=== PATIENT | female | born 1930 | race Caucasian/White ===

== ENCOUNTER 2019-01-26 16:54 | Inpatient (IN) ==
[2019-01-26] MEDS ORDERED: ZOFRAN IV PRN (17:13)
[2019-01-26] MEDS ORDERED: LEVAQUIN 500 MG/D5W 500 MG/100 ML IVPB IV SCH (17:15)
[2019-01-26] MEDS ORDERED: FLAGYL 500 MG/NS 500 MG/100 ML IVPB IV SCH (17:15)
[2019-01-26] MEDS ORDERED: SALINE LOCK IV FLUID XX ONE (17:36)
--- NOTE | 2019-01-26 19:20 | Diag Imaging Result Doc PS360 ---
EXAM: CT ABD/PELVIS W/IV CONT ONLY - 01/26/2019 HISTORY: Abdominal pain TECHNIQUE: CT abdomen/pelvis with intravenous contrast. No oral contrast administered per request of the referring provider. COMPARISON: None. FINDINGS: The visualized lung bases appear clear except for mild dependent atelectasis. There is a 1.2 cm well demarcated fluid density lesion in the right lobe of liver which likely represents cysts, although early abscess cannot be entirely excluded. There is no other liver lesion identified. There is mild splenomegaly. There is no focal splenic lesion identified. There are no substantial abnormalities of the adrenal glands or pancreas identified. There are no calcified gallstones or pericholecystic inflammation identified. The bilateral kidneys enhance homogeneously. There is no hydronephrosis. The distal aorta is mildly ectatic at 1.9 cm. There are atherosclerotic calcifications noted. There are lumbar spine degenerative changes noted. There is colonic diverticulosis which is most extensive along the descending and sigmoid colon. There is substantial wall thickening along the distal sigmoid colon. There is a 4.9 x 2.8 cm lobulated collection of fluid and gas at the upper pelvis at the right of midline which is compatible with abscess. This presumably arises from perforated sigmoid diverticulum. There is hazy inflammation of mesentery around the abscess. There are several small bowel loops which traverse this area. There is mild distention of a small bowel loop anterior to the abscess. There is retained fluid elsewhere in small bowel which may relate to secondary enteritis and/or ileus. There is no free peritoneal air identified remote from abscess. IMPRESSION: Colonic diverticulosis. Substantial wall thickening along distal sigmoid colon which presumably relate to diverticulitis. 4.9 x 2.8 cm abscess at upper pelvis at the right of midline which presumably relates to perforated sigmoid diverticulum. Ill-defined inflammation mesentery around the abscess, with multiple small bowel loops traversing this area. Mild distention of small bowel anterior to the abscess. Retained fluid and small bowel, possibly related to secondary enteritis. This report was discussed with Dr. Redding on 01/26/2019 at 7:17 PM and was readback. This exam was performed using automated exposure control, adjustment of mA or kV according to patient size, and/or use of iterative reconstruction technique. Electronically signed by Erik Talbot 01/26/2019 7:17 PM
[2019-01-26] MEDS: NS 1,000 ML IV SCH (19:32)
[2019-01-26] MEDS ORDERED: SODIUM CHLORIDE 0.9% INJ SCH (21:00)
[2019-01-26] MEDS ORDERED: NEXIUM IV SCH (21:00)
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
[2019-01-26] MEDS: ZOSYN 3.375 GM in NS 50 ML IV SCH (23:00)
[2019-01-27] MEDS: ZOSYN 3.375 GM in NS 50 ML IV SCH ×4 (02:02→20:53)
[2019-01-27] MEDS: PROTONIX IV SCH ×2 (02:02→20:53)
--- NOTE | 2019-01-27 03:32 | GENERAL SURGERY CONSULTATION ---
DATE: 01/26/2019 REASON FOR CONSULTATION: Intra-abdominal abscess. REQUESTING PHYSICIAN: Dr. Redding. HISTORY OF PRESENT ILLNESS: This is an 88-year-old female who was in good health until about 9 days ago, when she began experiencing fairly constant crampy lower abdominal pain. It has been associated with decreased energy, decreased appetite, emesis x2, and diarrhea x2. She denies exacerbating factors. It has been relieved somewhat with Advil at times. Currently, she is not in any significant pain. She saw her primary care physician, Dr. Redding. Initial evaluation included a CBC, which did show leukocytosis. Her plain abdominal x-ray was negative. He sent her for CT scan, which showed an abscess in the pelvis adjacent to the sigmoidal-rectal junction. There was mild distention of small bowel anterior to the abscess. There was no free air or significant free fluid. She was then directly admitted by Dr. Redding and I was consulted. PAST MEDICAL HISTORY: None. HOME MEDICATIONS: None. PAST SURGICAL HISTORY: Tonsillectomy. ALLERGIES: No known drug allergies. FAMILY HISTORY: Reviewed and noncontributory. SOCIAL HISTORY: She quit smoking years ago after smoking for 60 years. She does drink alcohol occasionally. She does walk quite a bit every day and is very active. REVIEW OF SYSTEMS: Ten-systems reviewed and negative except as noted above. PHYSICAL EXAMINATION: Vital Signs: Temperature 98.1 degrees, pulse 94, blood pressure 126/59, respiratory rate 18, O2 saturation 94%. General: An elderly female who looks her stated age, in no acute distress. HEENT: Normocephalic, atraumatic. Extraocular muscles intact. Pupils equal, round, reactive to light. Sclerae anicteric. Moist mucous membranes. Hearing grossly normal. No oral lesions. Neck: Supple. No thyromegaly. Cardiovascular: Regular rate and rhythm. Respiratory: Bilateral equal breath sounds. No increased work of breathing. Gastrointestinal: Soft, nondistended. No organomegaly or mass. She is mildly tender in the lower abdomen without rebound or guarding. Extremities: No clubbing, cyanosis, or edema. Skin: Warm and dry. No rash. Musculoskeletal: Moves all extremities equally and well. LABORATORY: They are currently not available for me to see, but Dr. Redding reported to me leukocytosis of 19,000. IMAGING: As described above in HPI. ASSESSMENT AND PLAN: An 88-year-old female with probable peridiverticular abscess. She is hemodynamically stable. Her abdominal exam is fairly benign. Ideally, we would percutaneously drain this abscess, but anatomically I do not think this is safe. We will start off conservatively with broad-spectrum antibiotics, namely Zosyn and Flagyl. I will reassess her physical exam in the morning as well as her lab work and x-ray. If she has any significant clinical deterioration, then we will proceed to the operating room for drainage of the abscess and possible bowel resection. However, I think she may improve with nonoperative measures. I would plan a repeat CT scan in about 4 days, if she is clinically improving to check for resolution of the abscess. cc: MD Ricardo Ames MD
[2019-01-27 07:13] LABS: BASO# 0.02 X1000 (0.0-0.2); BASO% 0.1 % (0.0-0.8); EOS% 1.3 % (0.0-10.0); HEMATOCRIT 35.5 % (37.0-47.0); HEMOGLOBIN 11.2 g/dL (12.0-16.0); IMM GRAN# 0.09 X1000 (0.0-0.04); IMM GRAN% 0.6 % (0.0-0.5); LYMPH# 1.31 X1000 (1.2-3.4); LYMPH% 8.5 % (20.5-51.1); MCH 28.8 PG (27-31); MCHC 31.5 g/dL (33-37); MCV 91.3 FL (81-99); MONO# 1.03 X1000 (0.11-0.59); MONO% 6.7 % (1.7-9.3); MPV 9.5 FL (7.4-10.4); NEUT# 12.73 X1000 (1.4-6.5); NEUT% 82.8 % (42.2-75.2); PLT 357 X1000 (130-400); RBC 3.89 XMIL (4.2-5.4); RDW 13.8 % (11.5-14.5); WBC 15.38 X1000 (4.8-10.8)
[2019-01-27 07:46] LABS: CALCIUM 8.8 mg/dL (8.8-10.2); POTASSIUM 4.1 mmol/L (3.5-5.1)
--- NOTE | 2019-01-27 08:20 | Diag Imaging Result Doc PS360 ---
EXAM: FLAT/UPRIGHT ABD/1 VIEW CHEST HISTORY: diverticulitis/abscess TECHNIQUE: Three views COMPARISON: None. FINDINGS: The lungs are well expanded. No pneumonia. No cardiomegaly. No free air beneath the diaphragm. Air distended loop of bowel in the left abdomen measuring 3.7 cm.. No organomegaly. There is intravenous contrast in the urinary bladder. There appears to be a urinary bladder diverticulum. IMPRESSION: Air distended small bowel loop in the mid left abdomen. Follow-up films recommended."),3) Electronically signed by Osman Paul 01/27/2019 8:17 AM
[2019-01-27] MEDS: NS 1,000 ML IV SCH ×2 (08:32→20:58)
[2019-01-27] MEDS: SODIUM CHLORIDE 0.9% INJ SCH ×2 (08:35→20:53)
--- NOTE | 2019-01-27 15:22 | GENERAL SURGERY PROGRESS NOTE ---
DATE: 01/27/2019 SUBJECTIVE: The patient denies any worsening symptoms of abdominal pain, nausea, vomiting, fever, or other systemic complaints. She has passed some gas. OBJECTIVE: Vital Signs: She is afebrile. Vital signs are stable. General: She is awake and alert, in no acute distress. CV: Regular rate and rhythm. Respiratory: Bilateral breath sounds. No increased work of breathing. Gastrointestinal: Soft, nondistended. Mildly tender in the lower abdomen. No rebound or guarding. She does have bowel sounds. LABORATORY: White blood cell count 15,000, hemoglobin 11. Electrolytes reviewed and notable for a moderately low carbon dioxide at 19. IMAGING: Abdominal flat and upright x-ray was reviewed and showed no free air and a moderately air-distended loop of bowel in the left abdomen, but otherwise there were no significant findings. ASSESSMENT AND PLAN: An 88-year-old female with pelvic abscess, likely of diverticular origin. She is stable. We are currently treating this non operatively with intravenous antibiotics. She seems to be stable if not improved. I will start her on a liquid diet and advance as tolerated. My plan is to repeat a computed tomography scan on Wednesday to check for resolution or at least improvement of the abscess. If she clinically deteriorates, she will require exploratory surgery. cc: MD Ricardo Ames MD
--- NOTE | 2019-01-27 19:04 | PROGRESS NOTE ---
DATE: 01/27/2019 SUBJECTIVE: Interval history was reviewed. Appreciated Dr. Boggs consult. The patient is slightly improved. OBJECTIVE: Blood pressure is stable. Slightly tachycardic. Afebrile. HEENT exam within normal limits. Neck is supple. Chest is clear. Heart sounds are regular. Belly is soft. No signs of peritonitis. LABORATORY DATA: White cell count 15.3, hematocrit 35, platelets 357,000. Sodium 138, potassium 4.1, BUN 18, creatinine 1.0. ASSESSMENT AND PLAN: 1. Sigmoid diverticulitis with abscess. Continue intravenous antibiotics, intravenous fluids. Dr. Boggs is following. Started on full liquid diet. Daily monitoring. CBC. 2. Gastrointestinal prophylaxis with Protonix, ambulation. Zofran for nausea. Continue to see the progress over the weekend and will follow with the recommendations from Dr. Boggs. I appreciated his consultation and expertise. Level of documentation 25 minutes. cc: Ricardo Redding MD
[2019-01-28] MEDS: ZOSYN 3.375 GM in NS 50 ML IV SCH ×4 (02:01→20:09)
[2019-01-28 08:04] LABS: BASO# 0.03 X1000 (0.0-0.2); BASO% 0.3 % (0.0-0.8); EOS# 0.38 X1000 (0.0-0.7); EOS% 3.3 % (0.0-10.0); HEMATOCRIT 38.3 % (37.0-47.0); HEMOGLOBIN 11.9 g/dL (12.0-16.0); IMM GRAN# 0.11 X1000 (0.0-0.04); LYMPH# 1.67 X1000 (1.2-3.4); LYMPH% 14.5 % (20.5-51.1); MCHC 31.1 g/dL (33-37); MCV 93.2 FL (81-99); MONO# 0.68 X1000 (0.11-0.59); MONO% 5.9 % (1.7-9.3); MPV 9.4 FL (7.4-10.4); NEUT# 8.62 X1000 (1.4-6.5); PLT 478 X1000 (130-400); RBC 4.11 XMIL (4.2-5.4); WBC 11.49 X1000 (4.8-10.8)
[2019-01-28] MEDS: NS 1,000 ML IV SCH ×2 (08:25→18:27)
--- NOTE | 2019-01-28 12:27 | PROGRESS NOTE ---
DATE: 01/28/2019 SUBJECTIVE: An 88-year-old white female patient, admitted with lower abdominal pain. The patient found to have leukocytosis. CT scan did reveal diverticulitis and possible abscess. The patient admitted for further care. Surgical opinion requested and reviewed. The patient started on IV antibiotics. Clinically, patient is doing better. Her pain seems to be getting better. She denied any fever or chills. She denied any diarrhea. No nausea or vomiting. No abdominal distention. No dysuria. No typical chest pain or palpitation. PAST MEDICAL HISTORY: 1. Metabolic syndrome. 2. Vancleve's disease. 3. Osteoporosis. 4. Vitamin D deficiency. OBJECTIVE: Vital signs: Blood pressure 112/54, pulse 78, respirations 16, temperature 97.4 degrees. Skin: Senile turgor. Neck: Supple. No JVD. Lungs: Bilateral good air entry present. CVS: S1 and S2 heard. Abdomen: Soft, globular. Bowel sounds present. Minimal tenderness left lower quadrant. No guarding or rigidity. Extremities: No cyanosis, clubbing. No acute DVT. 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 Able to move all 4 limbs. LABORATORY DATA: Done today includes WBC count 11.49, hemoglobin 11.9, hematocrit 38.3, platelet count 478. Electrolytes checked yesterday reviewed. IMAGING STUDIES: Admission CT scan result noted. CONSIDERATION: 1. Sigmoid diverticulitis. 2. The patient does have abscess. 3. Her other problems include metabolic syndrome. 4. Osteoporosis. 5. Vitamin D deficiency. 6. Leukocytosis, improved. 7. Anemia, most likely of chronic disease. Labs and medication noted. Surgical consult also reviewed. I will continue current treatment. Encourage oral feeding. If clinical condition permits, we will plan discharging patient home soon. cc: MD Ricardo Hoffman MD
--- NOTE | 2019-01-28 14:30 | GENERAL SURGERY PROGRESS NOTE ---
DATE: 01/28/2019 SUBJECTIVE: She denies any abdominal pain. She slept well last night. No fevers, no tachycardia overnight. Her white count downtrending down to 11. EXAM: She is alert.Cardiovascular: Normal rate. Abdomen: Soft, nontender, nondistended. Integument: Warm, dry. She is sitting on edge of bed. ASSESSMENT AND PLAN: This is a female with a abdominal abscess most likely diverticular in etiology. Is not amenable percutaneous drainage, is approximately 5 cm and she seems to be clinically improving with antibiotics. We will continue current antibiotics. I discussed with anticipation long-term antibiotics but will gradually begin advancing her diet. I have encouraged her to be out of bed and mobilizing. cc: MD Ricardo Gannon MD
[2019-01-28] MEDS: LOVENOX SUBQ SCH (14:54)
[2019-01-28] MEDS: PROTONIX IV SCH (20:09)
[2019-01-28] MEDS: SODIUM CHLORIDE 0.9% INJ SCH (20:09)
[2019-01-29] MEDS: ZOSYN 3.375 GM in NS 50 ML IV SCH ×4 (01:51→20:44)
[2019-01-29] MEDS: NS 1,000 ML IV SCH ×2 (04:33→13:50)
[2019-01-29] MEDS: LOVENOX SUBQ SCH (09:52)
--- NOTE | 2019-01-29 12:01 | GENERAL SURGERY PROGRESS NOTE ---
DATE: 01/29/2019 SUBJECTIVE: Doing well. No fevers. No tachycardia. OBJECTIVE: Vital Signs: Blood pressure 119/53. General: She is alert. She is sitting on the edge of the bed. Cardiovascular: Normal rate. Abdomen: Soft, nontender, nondistended. Integument: Warm and dry. LABORATORY DATA: Reviewed her labs. Nothing new today. ASSESSMENT AND PLAN: An 88-year-old female with pelvic abscess. This is improving with intravenous antibiotics. Will repeat her labs tomorrow. If white count remains normal, it would be reasonable to transition to intravenous antibiotics as an outpatient. Otherwise, I have encouraged her to go slow with her eating and ambulating. cc: MD Ricardo Gannon MD
--- NOTE | 2019-01-29 12:09 | PROGRESS NOTE ---
DATE: 01/29/2019 SUBJECTIVE: Ms. Blunt is doing fair. The patient did have some abdominal pain. She did have two bowel movements. No blood or mucus in the stool. No abdominal distention. Denied any dysuria or hematuria. No chest pain or palpitations. OBJECTIVE: Vital Signs: Noted. Neck: Supple. No JVD. Lungs: Bilateral good air entry present. Cardiovascular: S1 and S2 heard. Abdomen: Soft, nontender. Bowel sounds present. CERTIFICATION OFFICER: Alert, awake, able to move all 4 limbs. CONSIDERATION: 1. Acute sigmoid diverticulitis with possible localized abscess. 2. Leukocytosis, improving. 3. History of osteoporosis. Overall, the patient is doing better. Advised the patient to eat small, frequent meals, and light meals. Continue intravenous antibiotics. I am going to repeat blood work tomorrow. Dr. Redding will follow the patient. If clinical condition permits, we plan on discharging the patient home tomorrow. cc: MD Ricardo Hoffman MD
[2019-01-29] MEDS: PROTONIX IV SCH (20:45)
[2019-01-29] MEDS: SODIUM CHLORIDE 0.9% INJ SCH (20:45)
[2019-01-30] MEDS: ZOSYN 3.375 GM in NS 50 ML IV SCH ×4 (02:22→20:56)
[2019-01-30] MEDS: NS 1,000 ML IV SCH ×4 (02:27→20:56)
[2019-01-30 07:47] LABS: BASO# 0.03 X1000 (0.0-0.2); BASO% 0.4 % (0.0-0.8); EOS# 0.37 X1000 (0.0-0.7); EOS% 5.5 % (0.0-10.0); HEMATOCRIT 33.4 % (37.0-47.0); HEMOGLOBIN 10.3 g/dL (12.0-16.0); IMM GRAN# 0.09 X1000 (0.0-0.04); IMM GRAN% 1.3 % (0.0-0.5); LYMPH% 25.4 % (20.5-51.1); MCH 28.9 PG (27-31); MCHC 30.8 g/dL (33-37); MCV 93.6 FL (81-99); MONO# 0.52 X1000 (0.11-0.59); MONO% 7.8 % (1.7-9.3); MPV 9.6 FL (7.4-10.4); NEUT# 3.98 X1000 (1.4-6.5); NEUT% 59.6 % (42.2-75.2); PLT 306 X1000 (130-400); RBC 3.57 XMIL (4.2-5.4); WBC 6.69 X1000 (4.8-10.8)
[2019-01-30 08:14] LABS: ALB/GLOB RATIO 0.7; ALBUMIN 2.2 g/dL (3.5-5.0); CREATININE 0.9 mg/dL (0.5-0.9); MAGNESIUM 1.9 mg/dL (1.5-2.7); POTASSIUM 3.6 mmol/L (3.5-5.1); TOTAL BILIRUBIN 0.37 mg/dL (0.20-1.00); TOTAL PROTEIN 5.4 g/dL (6.3-8.3)
[2019-01-30] MEDS: LOVENOX SUBQ SCH (11:00)
--- NOTE | 2019-01-30 15:04 | GENERAL SURGERY PROGRESS NOTE ---
DATE: 01/30/2019 SUBJECTIVE: The patient is feeling fine. She denies abdominal pain, nausea, or vomiting. She has a little crampiness at times. She is eating a regular diet. She is having bowel movements and passing gas. No fever or chills. OBJECTIVE: Vital Signs: She is afebrile. Vital signs are stable. General: She is awake, alert, and oriented x3. No acute distress. GI: Soft, nontender, nondistended. Good bowel sounds. LABORATORY DATA: CBC and metabolic profile were reviewed and unremarkable. Her white blood cell count is noted to be normal now. ASSESSMENT AND PLAN: An 88-year-old female with abscess of the pelvis, presumed to be due to diverticulitis. She is clinically stable. She has been on antibiotics through the weekend. We will recheck a CT scan tomorrow to assess for improvement or resolution of the abscess. If that is the case, my plan is to transition her to Levaquin and Flagyl for the next 10 days, and discharge her home tomorrow. We will then have a discussion for possible elective low anterior resection and sigmoidectomy versus continued observation. cc: MD Ricardo Ames MD
[2019-01-30] MEDS: PROTONIX IV SCH (20:58)
[2019-01-30] MEDS: SODIUM CHLORIDE 0.9% INJ SCH (20:58)
[2019-01-31] MEDS: ZOSYN 3.375 GM in NS 50 ML IV SCH ×3 (03:00→14:42)
--- NOTE | 2019-01-31 05:54 | PROGRESS NOTE ---
DATE: 01/30/2019 SUBJECTIVE: Events noted over the weekend. The patient is slowly improving. REVIEW OF SYSTEMS: None reported. PHYSICAL EXAMINATION: Vital Signs: Temperature 98.6 degrees, pulse 79, and vitals are stable. HEENT: Within normal limits. Neck: Supple. No lymphadenopathy. Chest: Bilateral air entry. Heart: Sounds are regular. Abdomen: Belly is soft. No signs of peritonitis. INVESTIGATIONS: White cell count 6.6, hematocrit 33.4, and platelets 306,000. SMA 7 is normal. LFTs were normal. ASSESSMENT AND PLAN: 1. Diverticulitis with abscess. Clinically better with antibiotics with IV Zosyn. 2. Slowly advance the diet. 3. Deep vein thrombosis prophylaxis with Lovenox and GI prophylaxis with IV Protonix. 4. Discussed with the family and Dr. Boggs. He is going to repeat the CT in the morning. Decrease IV fluids 50 mL/h per hour. Based on that, we will recommend switching to oral antibiotics and will follow up. Plan of care discussed with the family. LEVEL OF DOCUMENTATION: 25 minutes. cc: Ricardo Redding MD
[2019-01-31] MEDS: LOVENOX SUBQ SCH (09:01)
--- NOTE | 2019-01-31 11:25 | Diag Imaging Result Doc PS360 ---
EXAM: CT ABDOMEN/PELVIS W/WO CONTRAS INDICATION: pelvic abscess follow up TECHNIQUE: This exam was performed using automated exposure control, adjustment of mA or kV according to patient size, and/or use of iterative reconstruction technique. COMPARISON: 01/26/2019 FINDINGS: There has been interval development of small bilateral pleural effusions and bibasilar atelectasis. There has been interval development of moderate body wall anasarca. There is now trace ascites tracking around the liver. There has been development of mild periportal edema. There is a stable cystic-appearing focus associated with the right hepatic lobe. The liver is essentially unremarkable, otherwise. There is a stable borderline to mildly prominent spleen. The pancreas, adrenal glands, kidneys, and urinary bladder are unchanged. The known pelvic abscess seen on the previous study at and to the right of midline is overall slightly smaller measuring 5.1 x 2.2 cm axially (4.9 x 2.8 cm previously). It has a thickened and enhancing border and there are gas droplets within the abscess. There is extensive diverticulosis in the abscess is likely from a ruptured diverticulum. There is a thickened adjacent segment of sigmoid colon similar to the previous study. The adjacent loops of bowel exhibit mild thickening indicating secondary enteritis. No new abscess is appreciated. IMPRESSION: 1.Slight decrease in size of the known pelvic abscess as described above. 2.Development of small bilateral pleural effusions, trace ascites, and body wall anasarca. Electronically signed by Robert Richardson 01/31/2019 11:23 AM
[2019-01-31] MEDS ORDERED: LASIX IV ONE (14:11)
--- NOTE | 2019-01-31 15:27 | GENERAL SURGERY PROGRESS NOTE ---
DATE: 01/31/2019 SUBJECTIVE: The patient feels fine. She denies abdominal pain, nausea, vomiting, or fever. She is eating and having bowel function. OBJECTIVE: She is afebrile. Vital signs are stable.General: She is awake, alert, oriented x3. No acute distress. Gastrointestinal: Soft, nontender, nondistended. IMAGING: Her abdominal pelvis CT scan today shows a slight decrease in size of her pelvic abscess. She does have some small bilateral pleural effusions, trace ascites and body wall anasarca. There is extensive diverticulosis in the sigmoid colon near the abscess. ASSESSMENT AND PLAN: An 88-year-old female with pelvic abscess, likely due to ruptured diverticulitis. She is clinically stable. The abscess is somewhat smaller and we are planning discharge home for a 14 day course of Levaquin and Flagyl. She will follow up with me in 2 weeks. I will repeat a CT scan at that time to assess for resolution of the abscess. We did discuss possible elective sigmoid resection. She will need a colonoscopy in the future whether we do resection or not. cc: MD Ricardo Ames MD
[2019-01-31] MEDS: NS 1,000 ML IV SCH (16:42)
[2019-01-31 17:02] VITALS: BP 105/80
--- NOTE | 2019-01-31 22:36 | DISCHARGE SUMMARY ---
ADMISSION DATE: 01/26/2019 DISCHARGE DATE: 01/31/2019 DISCHARGING DIAGNOSIS: Lower abdominal pain due to sigmoid diverticulitis with small perforation with midline 4 cm abscess. SECONDARY DIAGNOSES: 1. Edema due to volume overload 2. Metabolic syndrome. 3. Norfolk's disease. 4. Osteoporosis. 5. Vitamin D deficiency. CONSULTS: Dr. Boggs. BRIEF HISTORY: Please see the H and P that was done on 01/26/2019. In brief, she is an 88-year- old white female admitted to the hospital with lower abdominal pain for the last 9 days, associated with elevated white cell count of 19,000. CT scan of the abdomen and pelvis showed perforation diverticulum with midline abdominal abscess. Surgical consult was obtained, and as per Dr. Boggs, it is hard to do the drainage of the abscess due to part of the bowel. The patient was relegated to medical management with Zosyn and Flagyl. Follow-up white cell count came back normal. Patient developed small edema due to volume overload for which Lasix was given. Followup CT findings reassuring, slight decrease in abscess, and Dr. Boggs wants to continue 10 to 14 days of Levaquin and Flagyl, and follow up as an outpatient. At the time of discharge patient is stable. LABS: CBC: White cell count 6.6, hematocrit 33.4, platelets 306,000. Sodium 143, potassium 3.6, BUN 7, creatinine 0.9. Glucose 88. LFTs, alkaline phosphatase coming down at 180. Repeat CT scan of the abdomen and pelvis, abscess is slightly smaller. Development of some ascites and body wall anasarca. DISCHARGE INSTRUCTIONS: 1. Flagyl 500 t.i.d., Levaquin 750 daily. 2. Follow up in my office next week as well as with Dr. Humza Boggs. cc: MD Humza Jean MD
== END 2019-01-31 19:30 | disposition home or self-care (01) | DRG 392 ==
LOC: DIRADM 16:54 → EDIPHOLD 17:14 → 3N 23:08
PROVIDERS: ADMIT Internal Medicine; ATTEND Internal Medicine

== ENCOUNTER 2019-02-14 05:16 | Inpatient (IN) ==
--- NOTE | 2019-02-13 13:04 | EKG Report ---
Test Performed on : 02/13/2019 12:25:18 PM Test Reason : PAT Blood Pressure : / mmHG Vent. Rate : 079 BPM Atrial Rate : 079 BPM P-R Int : 156 ms QRS Dur : 086 ms QT Int : 366 ms P-R-T Axes : 046 031 040 degrees QTc Int : 419 ms Normal sinus rhythm. Normal ECG No previous ECGs available Confirmed by Zion Pederson MD ([id number]) on 02/14/2019 7:18:21 AM
[2019-02-14] MEDS ORDERED: INVANZ 1 GM/NS 1 GM/50 ML IVPB ONE (05:42)
[2019-02-14] MEDS ORDERED: ENTEREG ONE (05:42)
[2019-02-14] MEDS ORDERED: LR 1,000 ML ONE (05:42)
[2019-02-14] MEDS ORDERED: DIPRIVAN 1% ONE (06:19)
[2019-02-14] MEDS ORDERED: FENTANYL ONE (06:19)
[2019-02-14] MEDS ORDERED: NORCURON ONE (06:20)
[2019-02-14] MEDS ORDERED: ROBINUL ONE ×2 (06:20→08:50)
[2019-02-14] MEDS ORDERED: STERILE WATER INJ. ONE (06:20)
[2019-02-14] MEDS ORDERED: XYLOCAINE-MPF 2% ONE (06:20)
[2019-02-14] MEDS ORDERED: NEO-SYNEPHRINE ONE (06:24)
[2019-02-14] MEDS ORDERED: QUELICIN (DOSE) ONE (06:33)
[2019-02-14] MEDS ORDERED: SENSORCAINE 0.5%-EPI 1:200,000 ONE (06:37)
[2019-02-14] MEDS ORDERED: ALBUMIN 25% ONE (06:37)
[2019-02-14] MEDS ORDERED: BRIDION ONE (06:37)
[2019-02-14] MEDS ORDERED: OFIRMEV 1000 MG/ISOTONIC SOLN 1,000 MG/100 ML BOTTLE ONE (07:01)
[2019-02-14] MEDS ORDERED: DECADRON ONE (07:01)
[2019-02-14] MEDS ORDERED: EPHEDRINE ONE (07:26)
[2019-02-14] MEDS ORDERED: PRECEDEX ONE (07:49)
[2019-02-14] MEDS ORDERED: DILAUDID ONE (07:54)
[2019-02-14] MEDS ORDERED: NEOSTIGMINE ONE (08:50)
[2019-02-14] MEDS ORDERED: ZOFRAN ONE (08:50)
[2019-02-14] MEDS ORDERED: EXPAREL 1.3% ONE (09:00)
[2019-02-14] MEDS ORDERED: MARCAINE 0.25% ONE (09:01)
[2019-02-14 10:23] LABS: URINE SOURCE CATH
[2019-02-14 10:27] LABS: BILIRUBIN URINE NEGATIVE (NEGATIVE); BLOOD URINE NEGATIVE (NEGATIVE); COLOR YELLOW; GLUCOSE URINE NEGATIVE (NEGATIVE); KETONE URINE NEGATIVE (NEGATIVE); LEUKOCYTES URINE NEGATIVE (NEGATIVE); NITRITE URINE NEGATIVE (NEGATIVE); PROTEIN URINE NEGATIVE (NEGATIVE); SP GRAVITY URINE 1.006; TURBIDITY URINE CLEAR (CLEAR); UR EPITHELIAL CELLS <10 /HPF (<10); URINE BACTERIA NEGATIVE /HPF; URINE WBC <10 /HPF (<10); UROBILINOGEN URINE NORMAL (NORMAL)
[2019-02-14] MEDS ORDERED: NS 1,000 ML ONE (11:33)
[2019-02-14] MEDS ORDERED: ZOFRAN IV PRN (11:46)
[2019-02-14] MEDS ORDERED: DILAUDID IV PRN (11:46)
--- NOTE | 2019-02-14 12:07 | OPERATIVE NOTE ---
PROCEDURE DATE: 02/14/2019 PREOPERATIVE DIAGNOSIS: Diverticulitis with abscess. POSTOPERATIVE DIAGNOSIS: Diverticulitis with abscess. PROCEDURE: Robotic converted to open low anterior colon resection, drainage of intraabdominal abscess, robotic appendectomy, and partial right salpingectomy. SURGEON: Humza Boggs MD. FINANCIAL PLANNING ASSISTANT: Dong Gutierrez MD. ANESTHESIA: General. ESTIMATED BLOOD LOSS: 300 mL. COMPLICATIONS: None apparent. SPECIMENS: Sigmoid colon, portion of rectum, portion of left fallopian tube, and appendix. FINDINGS: The patient had diverticulitis of the distal sigmoid and rectal junction, with severe inflammation and adhesions of the sigmoid and rectum to the uterus, bladder and left fallopian tube. There was a contained abscess in this area. After the resection and anastomosis a proctoscopy was performed by Dr. Gutierrez and there was no evidence of leakage at the anastomosis. TECHNIQUE: She was brought to the operating room and placed supine on the table. General anesthesia was induced. A Sanabria catheter was placed. She was placed in stirrups, appropriately padded. She was then prepped and draped in the usual sterile fashion. The, 0.25% Marcaine with epinephrine was used to anesthetize our incisions. An 11 mm incision was made just superior and to the right of the umbilicus. The anterior fascia was exposed and incised with cautery. Entry into the peritoneal cavity was obtained under direct vision with the Optiview device. Pneumoperitoneum was established. The camera was inserted. There was no evidence of injury to underlying structures. Two 8 mm incision ports were placed in the left upper abdomen and lateral abdomen under direct vision. A 15 mm incision port was placed in the right lower quadrant under direct vision, and a 5 mm logistics assistant port was placed in the right upper quadrant under direct vision. She was placed in Trendelenburg in slight right rotation. The robot was brought in and docked to the ports. The instruments were inserted. I then went to the console. There were numerous adhesions of the small-bowel down to the inflamed sigmoid, also to the uterus and right fallopian tube. I took these adhesions either with blunt sweeping or with scissors and cautery. I eventually was able to free up all the small-bowel away from the inflamed area. I did enter an abscess cavity in between the sigmoid colon, uterus and fallopian tube. We suctioned this out. I continued working to free up the sigmoid from the structures, but ultimately felt like I could not get adequate mobilization robotically without increasing the risk of injuring either the distal rectum or the bladder or ureter. I did, at this point, decide to open. I rejoined the sterile field, the robot was undocked and removed. I made a midline incision from the umbilicus down to the symphysis pubis with a knife and carried this down through subcutaneous fat, fascia and peritoneum with cautery. A wound protector was placed and a Chaparro retractor. I began mobilizing the sigmoid colon away from the lateral pelvic sidewall and pericolic gutter incising the white line of Toldt with cautery and using blunt finger dissection to mobilize the sigmoid and descending colon away from the retroperitoneum. I did identify the left ureter and stayed away from it during the dissection. Using finger fracture technique I was able to mobilize the sigmoid loop that was stuck in the pelvis up and out of the pelvis. Then I could visualize the rectum where it appeared to be normal in the midportion of the rectum. I went ahead and transected the sigmoid colon near the descending/sigmoid junction with a blue linear CHARO stapler. I created a window around the normal-appearing mid rectum with cautery and blunt finger dissection and transected it with a 45 mm blue TA stapler. I then divided the intervening sigmoid and rectum mesentery with the LigaSure device and passed the specimen off the field. I then opened up the staple line of the descending colon with cautery and sized it up to a 31 size. A 31 anvil in the EEA stapler was then placed along with a pursestring device, it did reach down to our rectal stump without significant tension. I then went below and dilated up the rectum with the dilators. I did have trouble passing the dilators all the way to the end of the staple line as there was probably a narrowed area just distal to our rectal stump staple line. I rejoined the sterile field and mobilized the rectal stump laterally with cautery. Dr. Gutierrez came in at this point and assisted with the anastomosis and proctoscopy. We decided to go ahead and bring up the stapler and bring it out along the anterior aspect of the rectum just distal to the stapled end of the rectal stump, so he brought up the stapler and deployed the male end through the rectal wall. I mated it up with the female end on the descending colon, and he went ahead and approximated the anvil with a stapler and fired it and brought it out. There were 2 intact donuts. The staple line was then placed under some saline. He performed a proctoscopy and passed air across the staple line. There was no evidence of any leakage. He desufflated the rectum and I then suctioned out and irrigated out the pelvis thoroughly with warm saline. We removed all laparotomy pads and instruments. I changed gloves. All the ports have been removed. I ran the small-bowel from the terminal ileum to the ligament of Treitz. There was no evidence of any bowel injury. I also should point out that prior to opening, I did have to peel the appendix off of the abscess cavity. It was significantly inflamed at its tip. I do not believe this represented primary appendicitis but the appendix appeared to be significantly diseased because of its association with the abscess so I went ahead and performed an appendectomy transecting across the base of the appendix and the appendiceal mesentery with a robotic staple load, and once we opened I removed the appendix. I also had partially removed some of the fallopian tube with scissors and cautery during my dissection around the abscess cavity. This was also removed once we opened. I closed the peritoneum of the lower midline incision with a running #1 Vicryl. The fascia was closed with a running #1 Maxon. I closed the camera port site fascia and the right lower quadrant port site fascia with interrupted 0 Vicryl. I then closed the skin with skin clips. She was awakened in stable condition. A sterile dressing was applied. She was transferred to the recovery room without apparent complication. cc: Humza Boggs MD
[2019-02-14] MEDS: NORCO-10 PO PRN ×2 (13:51→19:45)
[2019-02-14] MEDS: NS 1,000 ML IV SCH (13:51)
[2019-02-14] MEDS: LOVENOX SUBQ SCH (20:53)
[2019-02-14] MEDS: PERIDEX MT SCH (20:53)
[2019-02-15] MEDS: NORCO-10 PO PRN ×4 (01:13→20:24)
[2019-02-15] MEDS: NS 1,000 ML IV SCH (04:32)
[2019-02-15] MEDS: INVANZ 1 GM/NS 1 GM/50 ML IVPB IV SCH (06:07)
[2019-02-15 06:45] LABS: HEMATOCRIT 37.1 % (37.0-47.0); HEMOGLOBIN 11.7 g/dL (12.0-16.0); MCHC 31.5 g/dL (33-37); MCV 91.8 FL (81-99); MPV 9.2 FL (7.4-10.4); RBC 4.04 XMIL (4.2-5.4); RDW 14.9 % (11.5-14.5); WBC 11.16 X1000 (4.8-10.8)
[2019-02-15 07:08] LABS: AGAP 13; BUN 7 mg/dL (8-22); CALCIUM 8.3 mg/dL (8.8-10.2); CHLORIDE 107 mmol/L (98-107); COSMO 282; CREATININE 0.8 mg/dL (0.5-0.9); ESTIMATED GFR > 60; GLUCOSE 120 mg/dL (70-104); POTASSIUM 4.3 mmol/L (3.5-5.1); SODIUM 142 mmol/L (136-145); TCO2 22 mmol/L (25-35)
[2019-02-15] MEDS: ENTEREG PO SCH ×2 (08:37→20:22)
[2019-02-15] MEDS: PERIDEX MT SCH ×2 (08:37→20:22)
--- NOTE | 2019-02-15 08:57 | GENERAL SURGERY PROGRESS NOTE ---
DATE: 02/15/2019 SUBJECTIVE: The patient reports some worsened lower abdominal pain this morning, but it is relieved with the medicine. OBJECTIVE: Vital Signs: She is afebrile, pulse 95 to 101 overnight, blood pressure 135/68, O2 saturation 95%. General: She is awake, alert, and oriented x3. No acute distress. CV: Regular rate and rhythm. Respiratory: Bilateral breath sounds. No increased work of breathing. Gastrointestinal: Soft, nondistended, appropriately tender. She does have good bowel sounds. Incisional dressings are clean and dry. LABORATORY DATA: White blood cell count 11,000, hemoglobin 11.7, hematocrit 37. Electrolytes reviewed and unremarkable. ASSESSMENT AND PLAN: An 88-year-old female, postoperative day 1, open low anterior colon resection with appendectomy for diverticulitis, also drainage of intraabdominal abscess. She will remain on Invanz and a full liquid diet. We will consult Physical Therapy to help her mobilize today. cc: Humza Boggs MD
[2019-02-15] MEDS: LOVENOX SUBQ SCH (20:25)
[2019-02-16] MEDS: INVANZ 1 GM/NS 1 GM/50 ML IVPB IV SCH (08:29)
[2019-02-16] MEDS: PERIDEX MT SCH ×2 (08:30→20:35)
[2019-02-16] MEDS: ENTEREG PO SCH ×2 (08:30→20:34)
[2019-02-16] MEDS: NORCO-10 PO PRN (10:05)
[2019-02-16] MEDS ORDERED: NS 500 ML IV ONE (12:23)
--- NOTE | 2019-02-16 19:21 | GENERAL SURGERY PROGRESS NOTE ---
DATE: 02/16/2019 SUBJECTIVE: She says she feels a little better. She did walk to the nurse's station this morning. No nausea or vomiting. She is tolerating her liquid diet. She has not had any flatus yet. She also has not voided since her catheter was removed yesterday. OBJECTIVE: Vital signs: She is afebrile, pulse 103, respirations 16, blood pressure 143/67, O2 saturation 94%. General: An elderly female in no distress who looks her stated age. Cardiovascular: Tachycardic and regular. Respiratory: Bilateral breath sounds. No work of breathing. Gastrointestinal: Soft, nondistended, appropriately tender. Incisional dressings are clean and dry. She does have a few bowel sounds. LABORATORY DATA: None today. ASSESSMENT AND PLAN: An 88-year-old female postoperative day 2 low anterior resection for complicated diverticulitis. We will continue a full liquid diet for now. Encouraging ambulation. We will continue her broad-spectrum antibiotics and follow up her CBC tomorrow. If she cannot void soon, then we will reinsert the Sanabria catheter. cc: Humza Boggs MD
[2019-02-16] MEDS: LOVENOX SUBQ SCH (20:35)
[2019-02-17] MEDS: INVANZ 1 GM/NS 1 GM/50 ML IVPB IV SCH (08:42)
[2019-02-17] MEDS: PERIDEX MT SCH ×2 (08:42→20:55)
[2019-02-17] MEDS: ENTEREG PO SCH ×2 (09:43→20:55)
[2019-02-17 10:08] LABS: BASO# 0.03 X1000 (0.0-0.2); BASO% 0.3 % (0.0-0.8); EOS# 0.52 X1000 (0.0-0.7); EOS% 5.2 % (0.0-10.0); HEMATOCRIT 33.4 % (37.0-47.0); HEMOGLOBIN 10.1 g/dL (12.0-16.0); IMM GRAN# 0.09 X1000 (0.0-0.04); IMM GRAN% 0.9 % (0.0-0.5); LYMPH# 1.16 X1000 (1.2-3.4); LYMPH% 11.6 % (20.5-51.1); MCHC 30.2 g/dL (33-37); MCV 92.5 FL (81-99); MONO# 0.86 X1000 (0.11-0.59); MONO% 8.6 % (1.7-9.3); MPV 9.2 FL (7.4-10.4); NEUT# 7.34 X1000 (1.4-6.5); NEUT% 73.4 % (42.2-75.2); PLT 336 X1000 (130-400); RBC 3.61 XMIL (4.2-5.4); RDW 14.7 % (11.5-14.5)
[2019-02-17 10:50] LABS: AGAP 12; BUN 9 mg/dL (8-22); CALCIUM 8.3 mg/dL (8.8-10.2); CHLORIDE 104 mmol/L (98-107); COSMO 280; CREATININE 0.7 mg/dL (0.5-0.9); ESTIMATED GFR > 60; GLUCOSE 130 mg/dL (70-104); POTASSIUM 3.9 mmol/L (3.5-5.1); SODIUM 140 mmol/L (136-145); TCO2 24 mmol/L (25-35)
--- NOTE | 2019-02-17 12:50 | GENERAL SURGERY PROGRESS NOTE ---
DATE: 02/17/2019 SUBJECTIVE: The patient feels pretty good. She denies significant pain. She has had a little nausea, but able to tolerate some liquids. No flatus. She had no bowel movement. She is ambulating well and voiding. OBJECTIVE: Vital signs: She is afebrile. Pulse is 90s to low 100s, blood pressure 141/68, O2 saturation 92 to 97 percent. Urine output 825 mL. General: She is awake and alert, oriented x3. No acute distress. Cardiovascular: Regular rate and rhythm. Respiratory: Bilateral breath sounds. No work of breathing. No rales or rhonchi. Gastrointestinal: Soft, nondistended. Appropriately tender. Incisional dressings are clean and dry. She does have active bowel sounds. LABORATORY DATA: Pending. ASSESSMENT AND PLAN: An 88-year-old female status post low anterior colon resection for diverticular abscess. We are awaiting full return of bowel function. I will recheck her CBC and BMP today. cc: Humza Boggs MD
[2019-02-17] MEDS: COLACE PO SCH ×2 (14:12→20:30)
[2019-02-17] MEDS: LOVENOX SUBQ SCH (20:55)
[2019-02-18] MEDS: INVANZ 1 GM/NS 1 GM/50 ML IVPB IV SCH (08:54)
[2019-02-18] MEDS: COLACE PO SCH (09:55)
[2019-02-18] MEDS: PERIDEX MT SCH (09:55)
[2019-02-18] MEDS: ENTEREG PO SCH (09:55)
--- NOTE | 2019-02-18 12:00 | GENERAL SURGERY PROGRESS NOTE ---
DATE: 02/18/2019 SUBJECTIVE: The patient is doing well. She denies any significant pain, nausea or vomiting. She is having a few bowel movements. She is ambulating and tolerating her liquid diet. OBJECTIVE: She is afebrile. Vital signs are stable.General: She is awake, alert, and oriented x3. No acute distress. Gastrointestinal: Soft. Nondistended. Minimally tender. Incisions are clean, dry, and intact. She has good bowel sounds. ASSESSMENT AND PLAN: An 88-year-old female status post low anterior resection for complicated diverticulitis. She is doing well. We will discharge her home today, and transition her to oral ciprofloxacin and Flagyl for the next 3 days. She will follow up with me next week. cc: Humza Boggs MD
[2019-02-18 12:19] VITALS: BP 137/60
== END 2019-02-18 12:30 | disposition home or self-care (01) | DRG 331 ==
LOC: OR 05:16 → 4N 05:16 → OBSVTOIN 07:48
PROVIDERS: ADMIT Surgery; ATTEND Surgery